=== PATIENT | female | born 1950 | race Hispanic/Latino ===

== ENCOUNTER → 2017-11-07 | Outpatient (CLI) | payer MEDICARE ==
[~2017-11-07] MED LIST: ASPI-1181 PO; CARV3.1262 PO; CETI10TA57 PO; ISOS30TA6 PO; LOPE2 PO; METF500T6 PO; NITR0.4T50 SL; OMEP40CA37 PO; SIMV20TA6 PO
== END | disposition home or self-care (01) ==
LOC: RAH 13:07
PROVIDERS: ATTEND Internal Medicine
DX: Z12.31 Encounter for screening mammogram for malignant neoplasm of breast (principal)
CPT/HCPCS: 77067

== ENCOUNTER → 2018-05-07 | Outpatient (CLI) | payer MEDICARE ==
[~2018-05-07] MED LIST changes: +METF-444 PO; -METF500T6 PO
== END | disposition home or self-care (01) ==
LOC: RAH 05-06 11:57
PROVIDERS: ATTEND Physical Medicine & Rehabilitation
DX: M47.892 Other spondylosis, cervical region (principal)
CPT/HCPCS: 72052; 73030

== ENCOUNTER → 2018-10-09 | Outpatient (CLI) | payer MEDICARE | END | disposition home or self-care (01) | LOC: RAH 12:50 | PROVIDERS: ATTEND Physical Medicine & Rehabilitation | DX: M75.01 Adhesive capsulitis of right shoulder (principal) | CPT/HCPCS: 73221 ==

== ENCOUNTER → 2019-06-03 | Outpatient (CLI) | payer MEDICARE ==
[~2019-06-03] MED LIST changes: +OMEP40CA13 PO; -OMEP40CA37 PO
== END | disposition home or self-care (01) ==
LOC: RAH 07:36
PROVIDERS: ATTEND Physical Medicine & Rehabilitation
DX: M19.012 Primary osteoarthritis, left shoulder (principal); M25.711 Osteophyte, right shoulder
CPT/HCPCS: 73221